=== PATIENT | female | born 1995 | race Caucasian/White ===

== ENCOUNTER 2016-09-13 22:38 | Emergency (ER) | payer OTHER ==
[2016-09-13 23:13] VITALS: BP 114/70; PULSE 72; TEMP 98.7; BMI 32.8
--- NOTE | 2016-09-13 23:43 | PDOC ---
History of Present Illness - General History Source: Patient Exam Limitations: No Limitations - History of Present Illness Initial Comments: 09/13/16 23:50 Patient is a 21 year old female with no significant past medical history who presents to the ED with left sided lumbar pain for 4 days. Patient states that she fell 2 years ago and had intermittent left sided lumbar pain that resolved on its own, but she reports 4 days of the same pain at the same location. Patient states that the pain is sustained with motrin and tylenol but comes back after the medication wears off. She denies nausea or vomiting. She denies dysuria, hematuria, urgency, frequency. No recent trauma or fall. <Elena Gan - Last Filed: 09/13/16 23:50> - General History Source: Patient <Kyle Singer - Last Filed: 09/14/16 03:24> - General Chief Complaint: Back Pain Stated Complaint: PAIN, ACUTE Time Seen by Provider: 09/13/16 23:42 Past History <Elena Gan - Last Filed: 09/13/16 23:50> - Past Medical History Thyroid Disease: No Other medical history: Denies - Immunization History Immunization Up to Date: Yes - Psycho/Social/Smoking Cessation Hx Anxiety: No Suicidal Ideation: No Smoking Status: No Smoking History: Never smoked Have you smoked in the past 12 months: No Number of Cigarettes Smoked Daily: 0 Information on smoking cessation initiated: No Hx Alcohol Use: No Drug/Substance Use Hx: No Substance Use Type: None <Kyle Singer - Last Filed: 09/14/16 03:24> - Past Medical History Allergies/Adverse Reactions: Allergies Allergy/AdvReac Type Severity Reaction Status Date / Time No Known Allergies Allergy Verified 09/13/16 23:13 Home Medications: Ambulatory Orders NK [No Known Home Medication] 09/14/16 Review of Systems - Review of Systems Able to Perform ROS?: Yes Comments:: 09/13/16 23:51 CONSTITUTIONAL: Absent: fever, chills, diaphoresis, generalized weakness, malaise, loss of appetite HEENT: Absent: rhinorrhea, nasal congestion, throat pain, throat swelling, difficulty swallowing, mouth swelling, ear pain, eye pain, visual Changes CARDIOVASCULAR: Absent: chest pain, syncope, palpitations, irregular heart rate, lightheadedness , peripheral edema RESPIRATORY: Absent: cough, shortness of breath, dyspnea with exertion, orthopnea, wheezing, stridor, hemoptysis GASTROINTESTINAL: Absent: abdominal pain, abdominal distension, nausea, vomiting, diarrhea, constipation, melena, hematochezia GENITOURINARY: Absent: dysuria, frequency, urgency, hesitancy, hematuria, flank pain, genital pain MUSCULOSKELETAL: Present: left lumbar pain Absent: myalgia, arthralgia, joint swelling SKIN: Absent: rash, itching, pallor HEMATOLOGIC/IMMUNOLOGIC: Absent: easy bleeding, easy bruising, lymphadenopathy, frequent infections ENDOCRINE: Absent: unexplained weight gain, unexplained weight loss, heat intolerance, cold intolerance NEUROLOGIC: Absent: headache, focal weakness or paresthesias, dizziness, unsteady gait, seizure, mental status changes, bladder or bowel incontinence PSYCHIATRIC: Absent: anxiety, depression, suicidal or homicidal ideation, hallucinations. <Elena Gan - Last Filed: 09/13/16 23:50> *Physical Exam - Vital Signs Last Vital Signs Temp Pulse Resp BP Pulse Ox 98.7 F 72 19 114/70 99 09/13/16 23:10 09/13/16 23:10 09/13/16 23:10 09/13/16 23:10 09/13/16 23:10 - Physical Exam Comments: 09/13/16 23:51 GENERAL: Well developed, well nourished. Awake and alert. In no acute distress. HEENT: Normocephalic, atraumatic. PERRLA, EOMI. No conjunctival pallor. Sclerae are non -icteric. Moist mucous membranes. Oropharynx is clear. NECK: Supple. Full ROM. No JVD. Carotid pulses 2+ and symmetric, without bruits. No thyromegaly. No lymphadenopathy. CARDIOVASCULAR: Regular rate and rhythm. No murmurs, rubs, or gallops. Distal pulses are 2+ and symmetric. PULMONARY: No evidence of respiratory distress. Lungs clear to auscultation bilaterally. No wheezing, rales or rhonchi. ABDOMINAL: Soft. Non-tender. Non-distended. No rebound or guarding. No organomegaly. Normoactive bowel sounds. MUSCULOSKELETAL (+)Mild lumbar paraspinal tenderness, No bony tenderness or deformities of the left hip with ROM of left him Normal range of motion at all joints. No bony deformities or tenderness. No CVA tenderness. EXTREMITIES: No cyanosis. No clubbing. No edema. No calf tenderness. SKIN: Warm and dry. Normal capillary refill. No rashes. No jaundice. NEUROLOGICAL: Alert, awake, appropriate. Cranial nerves 2-12 intact. No deficits to light touch and temperature in face, upper extremities and lower extremities. No motor deficits in the in face, upper extremities and lower extremities. Normoreflexic in the upper and lower extremities. Normal speech. Toes are downgoing bilaterally. PSYCHIATRIC: Cooperative. Good eye contact. Appropriate mood and affect. <Elena Gna - Last Filed: 09/13/16 23:50> - Vital Signs Last Vital Signs Temp Pulse Resp BP Pulse Ox 98.7 F 72 19 114/70 99 09/13/16 23:10 09/13/16 23:10 09/13/16 23:10 09/13/16 23:10 09/13/16 23:10 <Kyle Singer - Last Filed: 09/14/16 03:24> Medical Decision Making - Medical Decision Making 09/14/16 03:17 Dr. Singer: The scribe's documentation has been prepared under my direction and personally reviewed by me in its entirery. I confirm that the note above accurately reflects all work, treatment, procedures, and medical decision making performed by me. <Kyle Singer - Last Filed: 09/14/16 03:24> *DC/Admit/Observation/Transfer - Attestations Scribe Attestion: 09/13/16 23:52 Documentation prepared by FELICITA Ruiz, acting as back office medical assistant for Kyle Singer DO. <Elena Gan - Last Filed: 09/13/16 23:50> - Discharge Dispostion Admit: No <Kyle Singer - Last Filed: 09/14/16 03:24> Diagnosis at time of Disposition: Low back pain Qualifiers: Chronicity: chronic Back pain laterality: left Sciatica presence: without sciatica Qualified Code(s): M54.5 - Low back pain - Discharge Dispostion Disposition: HOME Condition at time of disposition: Stable - Referrals Referrals: Mehreen Bustos MD [Primary Care Provider] - - Patient Instructions Printed Discharge Instructions: DI for Low Back Pain
[2016-09-13] MEDS ORDERED: IBUPROFEN 400 MG TABLET (FP) PO ONE ×2 (23:47→23:55)
[2016-09-13] MEDS ORDERED: METHOCARBAMOL 500 MG TABLET PO ONE (23:47)
[2016-09-13] MEDS ORDERED: METHOCARBAMOL 500 MG TABLET ONE (23:55)
[2016-09-14 00:31] LABS: URINE APPEARANCE CLEAR; URINE BILIRUBIN NEGATIVE (NEGATIVE); URINE COLOR LTYELLOW; URINE GLUCOSE (UA) NEGATIVE (NEGATIVE); URINE KETONE NEGATIVE (NEGATIVE); URINE LEUK ESTERASE NEGATIVE (NEGATIVE); URINE NITRITE NEGATIVE (NEGATIVE); URINE PROTEIN NEGATIVE (NEGATIVE); URINE UROBILINOGEN NEGATIVE E.U./dl (0.2-1.0)
[2016-09-14 00:34] LABS: URINE BLOOD 3+ (NEGATIVE)
[2016-09-14 00:43] LABS: URINE MUCUS RARE; URINE RBC 79 /hpf (0-3); URINE WBC 1 /hpf (3-5)
== END 2016-09-14 03:48 | disposition home or self-care (01) ==
LOC: SUPCPDRO 22:38 → JER 22:38
DX: M54.5 Low back pain (principal)
CPT/HCPCS: 72131-TC; 81003; 81015; 84703; 99282-25

== ENCOUNTER 2017-04-19 22:26 | Emergency (ER) | payer OTHER ==
[2017-04-19 22:48] VITALS: BP 128/74; PULSE 72; TEMP 99.1; BMI 38.4
--- NOTE | 2017-04-19 23:24 | PDOC ---
History of Present Illness - General Stated Complaint: COUGHING Time Seen by Provider: 04/19/17 23:20 History Source: Patient Exam Limitations: No Limitations - History of Present Illness Initial Comments: 04/19/17 23:21 21-year-old female with no medical history presents to the emergency department complaining of a nonproductive cough 3 weeks without fever, chills, nausea/ vomiting, general malaise, headache, dizziness, lightheadedness, earaches, facial pains, rhinorrhea, nasal congestion, neck pain/stiffness, sore throat, back pains, chest pain, shortness of breath, abdominal pains, urinary symptoms. Patient states she's been around family members who is had pneumonia and bronchitis. Timing/Duration: reports: other ([id number]) Past History - Past Medical History Allergies/Adverse Reactions: Allergies Allergy/AdvReac Type Severity Reaction Status Date / Time No Known Allergies Allergy Verified 04/19/17 22:45 Home Medications: Ambulatory Orders Methylprednisolone [Medrol Dose Rohith] 4 mg PO ASDIR #21 tablet 04/19/17 Azithromycin [Zithromax -] 250 mg PO DAILY #4 tablet 04/20/17 COPD: No Thyroid Disease: No Other medical history: Pt denies - Immunization History Immunization Up to Date: Yes - Suicide/Smoking/Psychosocial Hx Smoking Status: No Smoking History: Never smoked Have you smoked in the past 12 months: No Number of Cigarettes Smoked Daily: 0 Information on smoking cessation initiated: No Hx Alcohol Use: No Drug/Substance Use Hx: No Substance Use Type: None Review of Systems - Review of Systems Able to Perform ROS?: Yes Comments:: 04/19/17 23:22 CONSTITUTIONAL: Absent: fever, chills, diaphoresis, generalized weakness, malaise, loss of appetite HEENT: Absent: rhinorrhea, nasal congestion, throat pain, throat swelling, difficulty swallowing, mouth swelling, ear pain, eye pain, visual Changes CARDIOVASCULAR: Absent: chest pain, loss of consciousness, palpitations, irregular heart rate, peripheral edema RESPIRATORY: +cough Absent: shortness of breath, dyspnea with exertion, orthopnea, wheezing, stridor, hemoptysis GASTROINTESTINAL: Absent: abdominal pain, abdominal distension, nausea, vomiting, diarrhea, constipation, melena, hematochezia GENITOURINARY: Absent: dysuria, frequency, urgency, hesitancy, hematuria, flank pain, genital pain MUSCULOSKELETAL: Absent: myalgia, arthralgia, joint swelling SKIN: Absent: rash, itching, pallor HEMATOLOGIC/IMMUNOLOGIC: Absent: easy bleeding, easy bruising, lymphadenopathy, frequent infections ENDOCRINE: Absent: unexplained weight gain, unexplained weight loss, heat intolerance, cold intolerance Is the patient limited Polish proficient: No *Physical Exam - Vital Signs Last Vital Signs Temp Pulse Resp BP Pulse Ox 99.1 F 72 18 128/74 100 04/19/17 22:45 04/19/17 22:45 04/19/17 22:45 04/19/17 22:45 04/19/17 22:45 - Physical Exam Comments: 04/19/17 23:22 GENERAL: Well developed, well nourished. Awake and alert. No acute distress. HEENT: Normocephalic, atraumatic. PERRLA, EOMI. No conjunctival pallor. Sclera are non- icteric. Moist mucous membranes. Oropharynx is clear. NECK: Supple. Full ROM. No JVD. Carotid pulses 2+ and symmetric, without bruits. No thyromegaly. No lymphadenopathy. CARDIOVASCULAR: Regular rate and rhythm. No murmurs, rubs, or gallops. Distal pulses are 2+ and symmetric. PULMONARY: No evidence of respiratory distress. Lungs clear to auscultation bilaterally. No wheezing, rales or rhonchi. ABDOMINAL: Soft. Non-tender. Non-distended. No rebound or guarding. No organomegaly. Normoactive bowel sounds. MUSCULOSKELETAL Normal range of motion at all joints. No bony deformities or tenderness. No CVA tenderness. EXTREMITIES: No cyanosis. No clubbing. No edema. No calf tenderness. SKIN: Warm and dry. Normal capillary refill. No rashes. No jaundice. NEUROLOGICAL: Alert, awake, appropriate. Cranial nerves 2-12 intact. No deficits to light touch and temperature in face, upper extremities and lower extremities. No motor deficits in the in face, upper extremities and lower extremities. Normoreflexic in the upper and lower extremities. Normal speech. Toes are down- going bilaterally. Gait is normal without ataxia. PSYCHIATRIC: Cooperative. Good eye contact. Appropriate mood and affect. *DC/Admit/Observation/Transfer Diagnosis at time of Disposition: Acute bronchitis Qualifiers: Bronchitis organism: unspecified organism Qualified Code(s): J20.9 - Acute bronchitis, unspecified - Discharge Dispostion Disposition: HOME Condition at time of disposition: Stable Admit: No - Prescriptions Prescriptions: Azithromycin [Zithromax -] 250 mg PO UTDICT #6 tab Methylprednisolone [Medrol Dose Rohith] 4 mg PO ASDIR #21 tablet - Referrals Referrals: Rufino Mensah MD [Staff Physician] - - Patient Instructions Printed Discharge Instructions: DI for Acute Bronchitis Additional Instructions: Rest increase fluids Over the counter supportive care Follow up with your physician or the one listed on your discharge in 48 hours Return to the Er for severe/persistent/worsening symptoms - Post Discharge Activity
--- NOTE | 2017-04-19 23:38 | PDOC ---
*Physical Exam - Vital Signs Last Vital Signs Temp Pulse Resp BP Pulse Ox 99.1 F 72 18 128/74 100 04/19/17 22:45 04/19/17 22:45 04/19/17 22:45 04/19/17 22:45 04/19/17 22:45 Medical Decision Making - Medical Decision Making 04/19/17 23:37 agree with care from SYDNI Siegel *DC/Admit/Observation/Transfer Diagnosis at time of Disposition: Acute bronchitis Qualifiers: Bronchitis organism: unspecified organism Qualified Code(s): J20.9 - Acute bronchitis, unspecified - Discharge Dispostion Condition at time of disposition: Stable - Prescriptions Prescriptions: Azithromycin [Zithromax -] 250 mg PO UTDICT #6 tab Methylprednisolone [Medrol Dose Rohith] 4 mg PO ASDIR #21 tablet - Referrals Referrals: Rufino Mensah MD [Staff Physician] - - Patient Instructions Printed Discharge Instructions: DI for Acute Bronchitis Additional Instructions: Rest increase fluids Over the counter supportive care Follow up with your physician or the one listed on your discharge in 48 hours Return to the Er for severe/persistent/worsening symptoms - Post Discharge Activity
[2017-04-20] MEDS ORDERED: AZITHROMYCIN 500 MG TABLET ONE (00:32)
[2017-04-20] MEDS ORDERED: AZITHROMYCIN 250 MG TABLET PO ONE (00:32)
== END 2017-04-20 00:25 | disposition home or self-care (01) ==
LOC: JER 22:26
DX: J20.9 Acute bronchitis, unspecified (principal)
CPT/HCPCS: 99281-25

== ENCOUNTER 2017-11-24 07:26 | Inpatient (IN) | payer OTHER ==
[2017-11-24 09:22] VITALS: BMI 37.5
[2017-11-24] MEDS ORDERED: DINOPROSTONE 10 MG VAGINAL SUPPOSITORY VG ONE (10:00)
[2017-11-24] MEDS ORDERED: TUBERCULIN PPD 5 TU/0.1ML SYRINGE (IN PATIENT USE ONLY) ID ONE (10:00)
[2017-11-24] MEDS ORDERED: DEXTROSE 5%-LACTATED RINGERS 1,000 ML IV SCH ×2 (10:00→21:30)
[2017-11-24 10:21] LABS: BASO % 0.3 % (0-2.0); EOS % 0.4 % (0-4.5); HEMATOCRIT 36.5 % (32.4-45.2); HEMOGLOBIN 12.5 GM/dL (10.7-15.3); LYMPH % 18.3 % (8-40); MCH 30.1 pg (25.7-33.7); MCHC 34.2 g/dl (32.0-36.0); MEAN CELL VOLUME 87.8 fl (80-96); MEAN PLT VOLUME 11.6 fl (7.5-11.1); MONO % 4.9 % (3.8-10.2); NEUT % 76.1 % (42.8-82.8); PLATELET COUNT 130 K/MM3 (134-434); RBC 4.15 M/mm3 (3.60-5.2); RDW 14.5 % (11.6-15.6); WHITE BLOOD COUNT 10.4 K/mm3 (4.0-10.0)
[2017-11-24 10:39] LABS: INR 0.97 (0.83-1.09)
[2017-11-24 10:42] LABS: ACTIVATED PTT 26.2 SECONDS (25.2-36.5)
[2017-11-24 11:13] LABS: ANION GAP 10 (8-16); BLOOD UREA NITROGEN 8 mg/dL (7-18); CALCIUM 8.6 mg/dL (8.5-10.1); CHLORIDE 108 mmol/L (98-107); CO2 24 mmol/L (21-32); CREATININE 0.5 mg/dL (0.55-1.02); GLUCOSE,RANDOM 65 mg/dL (74-106); POTASSIUM 4.2 mmol/L (3.5-5.1); SODIUM 142 mmol/L (136-145)
--- NOTE | 2017-11-24 21:21 | HP ---
Past Medical History - Primary Care Physician PCP:: Brad Waddell - Admission Chief Complaint: 22 yo P0 with at EGA 37w 0d admitted for labor induction due to IUGR. History of Present Illness: at 37 wk IUGR. Pt was followed and evaluated by MFM and noted to have downward growth curve with fetus in 6th %ile. Labor induction was recommended at this time. 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: Alzheimer's, CVA, Dementia, Migraine, Multiple Sclerosis, Peripheral Neuropathy, Parkinson's, Seizure, Syncope, TIA, Vertigo, Other Cardiovascular: No: AFIB, Aneurysm, Aortic Insufficiency, Aortic Stenosis, CAD, CHF, Deep Vein Thrombosis, HTN, Hyperlipdemia, NC, Mitral Insufficiency, Mitral Stenosis, Murmur, Pulmonary Hypertension, Other Pulmonary: No: Asthma, Bronchitis, Cancer, COPD, O2 Dependent, Pneumonia, Previously Intubated, Pulmonary Embolus, Pulmonary Fibrosis, Sleep Apnea, Other Gastrointestinal: No: Ascites, Cancer, Constipation, Crohn's Disease, Diverticulitis, Diverticulosis, Esophageal Varices, Gastritis, GERD, GI Bleed, Hemorrhoids, Hiatal Hernia, Inflamatory Bowel Disease, Irritable Bowel Disease, Pancreatitis, Peptic Ulcer Disease, Ulcerative Colitis, Other Hepatobiliary: No: Cirrhosis, Cholelithiasis, Cholecystitis, Choledocholithiasis , Hepatitis A, Hepatitis B, Hepatitis C, Other Renal/: No: Renal Failure, Renal Inusuff, BPH, Cancer, Hematuria, Hemodialysis , Neurogenic Bladder, Renal Calculi, UTI, Other Reproductive: No: Ectopic , Endometriosis, Fibroids, PID, Polycystic Ovary Syndrome, Postmenopausal, Other ...: 2 ...Para: 0 ...Term: 0 ...: 0 ...Spon : 0 ...Induced : 1 ...Multiple Gestation: 0 ...LMP: 04/19/17 ... Weeks Gestation by Dates: 31.2 ...EDC by Dates: 01/24/18 ...EDC by Sono: 12/15/17 Heme/Onc: No: Anemia, B12 Deficiency, Bleeding Disorder, Cancer, Current Chemotherapy, Current Radiation Therapy, Hemochromatosis, Hypercoaguable State, Myeloproliferative Synd, Sickle Cell Disease, Sickle Cell Trait, Thrombocytopenia, Other Infectious Disease: No: AIDS, C-Diff, Herpes Zoster, HIV, MRSA, STD's, Tuberculosis, VREF, Other Psych: No: Addictions, Anxiety, Bipolar, Depression, Panic, Psychosis, Schizophrenia, Other Musculoskeletal: No: Bursitis, Chronic low back pain, Hemiparesis, Hemiplegia, Osteoarthritis, Paraplegia, Other Rheumatology: No: Fibromyalgia, Gout, Lupus, Rheumatoid Arthritis, Sarcoidosis, Vasculitis, Other ENT: No: Allergic Rhinitis, Sinusitis, Other Endocrine: No: Alpine's Disease, [place]'s Disease, Diabetes Insipidus, Diabetes Mellitus, Hyperparathyroidism, Hyperthyroidism, Hypothyroidism, Osteopenia, SIADH, Other Dermatology: No: Basal Cell, Cellulitis, Eczema, Melanoma, Psoriasis, Squamous Cell, Other - Past Surgical History Past Surgical History: Yes: None Hx Myomectomy: No Hx Transabdominal Cerclage: No - Smoking History Smoking history: Never smoked Have you smoked in the past 12 months: No Aproximately how many cigarettes per day: 0 - Alcohol/Substance Use Hx Alcohol Use: No History of Substance Use: reports: None Home Medications - Allergies Allergies/Adverse Reactions: Allergies Allergy/AdvReac Type Severity Reaction Status Date / Time No Known Allergies Allergy Verified 11/24/17 09:35 - Home Medications Home Medications: Ambulatory Orders One Tablet 1 tab PO DAILY 11/24/17 Family Disease History - Family Disease History Family History: Denies Review of Systems - Review of Systems Constitutional: reports: No Symptoms Eyes: reports: No Symptoms HENT: reports: No Symptoms, Ocular Prosthesis Neck: reports: No Symptoms Cardiovascular: reports: No Symptoms Respiratory: reports: No Symptoms Gastrointestinal: reports: No Symptoms Genitourinary: reports: No Symptoms Breasts: reports: No Symptoms Reported Musculoskeletal: reports: No Symptoms Integumentary: reports: No Symptoms Neurological: reports: No Symptoms Endocrine: reports: No Symptoms Hematology/Lymphatic: reports: No Symptoms Psychiatric: reports: No Symptoms Pain Intensity: 2 Physical Exam - Maternity Vital Signs: Vital Signs Temperature 98.6 F 11/24/17 20:00 Pulse Rate 74 11/24/17 21:00 Respiratory Rate 20 11/24/17 21:00 Blood Pressure 120/62 11/24/17 21:00 O2 Sat by Pulse Oximetry (%) Constitutional: Yes: Well Nourished, No Distress, Calm, Obese Eyes: Yes: WNL, Conjunctiva Clear HENT: Yes: WNL, Atraumatic, Normocephalic Neck: Yes: WNL, Supple, Trachea Midline Cardiovascular: Yes: WNL, Regular Rate and Rhythm Lungs: Clear to auscultation, Normal air movement - Abdominal Exam/OB Fundal Height: 37 Number of Fetuses: Single Presentation: Vertex Contractions: Yes Regularity: Irregular Intensity: Mild Monitor Mode: External Heart Rate (range): 140 Heart Rate Location: Midline Category: I Accelerations: Non-Uniform Decelerations: None - Vaginal Exam/OB Vaginal Bleediing: No Speculum Exam: No Dilatation (cm): 2 Effacement (%): 50 Amniotic Membrane Status: Intact Presentation: Vertex/Position Station: -3 (Adequate gynecoid pelvimetry) - Physical Exam Musculoskeletal: Yes: WNL Extremities: Yes: WNL Edema: No Integumentary: Yes: WNL Deep Tendon Reflex Grade: Normal +2 ...Motor Strength: WNL Psychiatric: Yes: WNL, Alert, Oriented - Labs Lab Results: CBC, BMP 11/24/17 10:00 11/24/17 10:00 Hemorrhage Risk Assessment - Risk Factors Medium Risk Factors: Yes: None High Risk Factors: Yes: None Risk Score: 1 Risk Level: Medium Risk Imaging - Results Ultrasound: Report Reviewed Assessment/Plan 22 yo P0 with at EGA 37w 0d admitted for labor induction due to IUGR. Pt was admitted this morning and examination showed fetus with category I tracing. Adequate gynecoid pelvimetry on exam. Unfavorable cervix. We then had long discussion re: risks, benefits, and alternatives of labor induction. I explained the options of expectant management awaiting spontaneous labor, induction of labor, and elective section. The risks of uterine tachysystole, distress, uterine rupture, need for emergency C/S, hemorrhage, infection, scarring, etc. were discussed. We also discussed the risks of meconium aspiration, shoulder dystocia, and anesthesia options. The pt requested to proceed with induction. We discussed the alternative methods of induction with Cervidil, Cytotec, Folley ballon, and pitocin. The pt stated that she prefers Cervidil followed by pitocin, if needed. The Cervidil was inserted at 9am and removed at 9pm today. The fetus continues to have Category I tracing. The cervical dilation progressed from 1 to 2 cm. Plan to start pitocin later.
[2017-11-24] MEDS ORDERED: AMPICILLIN SODIUM 2 GM VIAL ONE (21:28)
[2017-11-24] MEDS ORDERED: AMPICILLIN - 2 GM in SODIUM CHLORIDE 100 ML IVPB ONE (21:31)
[2017-11-24] MEDS ORDERED: OXYTOCIN 30 UNITS in 0.9% NS 30 UNIT/500 ML INFUS.BAG IVPB SCH (21:45)
[2017-11-24] MEDS ORDERED: OXYTOCIN 30 UNITS in 0.9% NS 30 UNIT/500 ML INFUS.BAG IVPB ONE (21:50)
[2017-11-25] MEDS ORDERED: AMPICILLIN SODIUM 1 GM VIAL ONE ×3 (02:12→10:09)
[2017-11-25] MEDS: AMPICILLIN - 1 GM in SODIUM CHLORIDE 100 ML IVPB SCH ×3 (02:20→10:10)
[2017-11-25] MEDS ORDERED: ONDANSETRON 4 MG/2 ML VIAL ONE (05:23)
[2017-11-25] MEDS ORDERED: ONDANSETRON 4 MG/2 ML VIAL IVPB ONE (05:45)
--- NOTE | 2017-11-25 06:41 | PN ---
Ante-Partal Exam - Subjective Subjective: No complaits. Declined pain management Vital Signs: Vital Signs Temperature 98.4 F 11/25/17 04:42 Pulse Rate 70 11/25/17 04:42 Respiratory Rate 18 11/25/17 04:42 Blood Pressure 123/71 11/25/17 04:42 O2 Sat by Pulse Oximetry (%) Bleeding: No Headache: No Visual changes: No Right upper quadrant pain: No Pain (scale 1-10): 7 - Contractions Contractions: No Regularity: Regular (q4min) Intensity: Moderate Monitor Mode: External - Exam during Labor Heart Rate: 130 Variability: Moderate Heart Rate Location: Midline Category: II Monitor Accelerations: Present Monitor Decelerations: Variable Exam: Vaginal Dilatation (cm): 3 Effacement (%): 90 Amniotic Membrane Status: Leaking Nitrazine Test: Positive Amniotic Fluid: Clear Presentation: Vertex Station: 0 Remarks: IUPC inserted - Intrapartum Hemorrhage Risk Medium Risk Factors: None High Risk Factors: None Risk Score: 0 Risk Level: Low Risk - Assessment/Plan Assessment/Plan: 22yo P0 undergoing labor indx for IUGR. Fetus noted to have recurrent variable decelerations. The pitocin was stopped and pt position was changed. The pt wa given Oxygen by mask. However, I am not able to see contractions with the external monitor when the pt is in lateral position. IUPC was placed. Plan to monitor for contractions and re-start pitocin if tracing becomes category I. Will try amnioinfusion if needed.
[2017-11-25] MEDS ORDERED: ELECTROLYTE-148 SOLN 1,000 ML IV SCH (07:15)
[2017-11-25] MEDS ORDERED: FENTANYL/BUPIVACAINE/NS/PF - PCEA - 50 ML DISP.SYRIN EP ONE (07:18)
[2017-11-25] MEDS ORDERED: NALOXONE HCL 0.4 MG/ML VIAL IVPUSH PRN (07:29)
[2017-11-25] MEDS ORDERED: FENTANYL/BUPIVACAINE/NS/PF - PCEA - 50 ML DISP.SYRIN EP SCH (07:30)
[2017-11-25] MEDS ORDERED: BUPIVACAINE HCL/PF 0.25% (2.5MG/ML) 10 ML VIAL ONE (07:40)
[2017-11-25] MEDS ORDERED: ePHEDrine SULFATE 50 MG/1 ML AMPULE ONE (08:08)
[2017-11-25] MEDS ORDERED: LIDOCAINE HCL 1% PRESERVATIVE FREE - 30ML VIAL ONE (10:43)
[2017-11-25] MEDS ORDERED: OXYTOCIN 20 UNITS in 0.9% NS 20 UNIT/1,000 ML INFUS.BAG IV ONE (10:44)
[2017-11-25] MEDS: OXYTOCIN 20 UNITS in 0.9% NS 20 UNIT/1,000 ML INFUS.BAG IV SCH ×2 (11:40→17:14)
[2017-11-25 12:07] LABS: ARTERIAL BLD GAS O2 SATURATION 32.2 % (90-98.9); ARTERIAL BLOOD GAS BASE EXCESS -7.9 meq/l (-2-2); ARTERIAL BLOOD GAS PCO2 54.2 mmHg (35-45)
[2017-11-25 12:13] LABS: ARTERIAL BLOOD GAS pH 7.21 (7.35-7.45)
[2017-11-25 12:14] LABS: ARTERIAL BLOOD GAS PO2 20.3 mmHg (80-100); VENOUS PH 7.32 (7.32-7.42)
[2017-11-25 12:15] LABS: VENOUS PO2 31.1 mmHg (28-48)
--- NOTE | 2017-11-25 12:45 | PN ---
Delivery - Delivery Vaginal Delivery: No Problems, Spontaneous Type of Anesthesia: Local, Epidural Episiotomy/Laceration: Midline EBL (cc): 300 Delivery, Single - Stages of Labor Date 1st Stage Initiatied: 11/25/17 Time 1st Stage Initiated: 04:00 Date 2nd Stage Initiated: 11/25/17 Time 2nd Stage Initiated: 11:00 Date of Delivery: 11/25/17 Time of Delivery: 11:36 Date Placenta Delivered: 11/25/17 Time Placenta Delivered: 11:40 Placenta: Yes: Spontaneous, Normal Configuration - Condition of Kitchen Operator/Health Record Technician Present: No Infant Gender: Male Weight: 2.325 kg Position: Right, OA Total Hours ROM (Hrs/Mins): 6hrs 45min - 1 Minute Total Score: 9 5 Minutes Total Score: 9 - [place] Feeding Plan Initial Plan: Elected not to breastfeed exclusively throughout hospitalization
[2017-11-25] MEDS ORDERED: BENZOCAINE 20% 57 GM BOTTLE TP PRN (13:06)
[2017-11-25] MEDS ORDERED: BENZOCAINE 28 GM HEMORRHOIDAL OINTMENT TP PRN (13:06)
[2017-11-25] MEDS ORDERED: BISACODYL 10 MG SUPP.RECT RC PRN (13:06)
[2017-11-25] MEDS ORDERED: METHYLERGONOVINE MALEATE 0.2 MG/1 ML AMP IM PRN (13:06)
[2017-11-25] MEDS ORDERED: WITCH HAZEL 50% (TUCKS) 40 PAD/JAR PAD TP PRN (13:06)
[2017-11-25] MEDS ORDERED: OXYTOCIN 30 UNITS in 0.9% NS 30 UNIT/500 ML INFUS.BAG IVPB SCH (13:15)
[2017-11-25] MEDS: ACETAMINOPHEN 325 MG TABLET (FP) PO PRN (21:04)
[2017-11-25] MEDS: IBUPROFEN 600 MG TABLET (FP) PO PRN (21:04)
[2017-11-26 08:25] LABS: BASO % 0.3 % (0-2.0); HEMATOCRIT 28.2 % (32.4-45.2); HEMOGLOBIN 9.6 GM/dL (10.7-15.3); LYMPH % 21.4 % (8-40); MCH 30.2 pg (25.7-33.7); MEAN CELL VOLUME 88.7 fl (80-96); MEAN PLT VOLUME 11.5 fl (7.5-11.1); MONO % 4.2 % (3.8-10.2); NEUT % 73.1 % (42.8-82.8); PLATELET COUNT 115 K/MM3 (134-434); RBC 3.19 M/mm3 (3.60-5.2); RDW 14.7 % (11.6-15.6); WHITE BLOOD COUNT 12.7 K/mm3 (4.0-10.0)
[2017-11-26] MEDS: PRENATAL VITAMINS W/ FOLIC ACID TABLET (FP) PO SCH (09:28)
[2017-11-26] MEDS: IBUPROFEN 600 MG TABLET (FP) PO PRN ×3 (09:28→20:54)
--- NOTE | 2017-11-26 09:40 | PN ---
Post Progress Note - Subjective Subjective: No complaints Post Day: 1 Type of Delivery: Vital Signs: Vital Signs Temperature 98.1 F 11/26/17 08:36 Pulse Rate 76 11/26/17 08:36 Respiratory Rate 18 11/26/17 08:36 Blood Pressure 107/57 11/26/17 08:36 O2 Sat by Pulse Oximetry (%) 100 11/25/17 11:30 Breast Exam: Yes: Soft Uterus: Yes: Fundus Firm, Fundus below umbilicus, Non-tender Abdomen/GI: Yes: Abdomen soft, Passing flatus, Tolerating PO Lochia: Yes: Rubra Lochia, amount: Small Extremities: Yes: Calves non-tender Perineum: Yes: Intact Activity: Ambulating - Labs Labs: CBC WBC 12.7 K/mm3 (4.0-10.0) H 11/26/17 08:09 RBC 3.19 M/mm3 (3.60-5.2) L 11/26/17 08:09 Hgb 9.6 GM/dL (10.7-15.3) L 11/26/17 08:09 Hct 28.2 % (32.4-45.2) L D 11/26/17 08:09 MCV 88.7 fl (80-96) 11/26/17 08:09 MCH 30.2 pg (25.7-33.7) 11/26/17 08:09 MCHC 34.0 g/dl (32.0-36.0) 11/26/17 08:09 RDW 14.7 % (11.6-15.6) 11/26/17 08:09 Plt Count 115 K/MM3 (134-434) L 11/26/17 08:09 MPV 11.5 fl (7.5-11.1) H 11/26/17 08:09 Absolute Neuts (auto) 9.3 # 11/26/17 08:09 Neutrophils % 73.1 % (42.8-82.8) 11/26/17 08:09 Lymphocytes % 21.4 % (8-40) 11/26/17 08:09 Monocytes % 4.2 % (3.8-10.2) 11/26/17 08:09 Eosinophils % 1.0 % (0-4.5) D 11/26/17 08:09 Basophils % 0.3 % (0-2.0) 11/26/17 08:09 Nucleated RBC % 0 % (0-0) 11/26/17 08:09 Assessment/Plan 22 yo P1 s/p , doing well stable, afebrile. Asymptomatic for anemia care instructions reviewed. Continue routine care. Ambulation encouraged Discharge instruction reviewed
--- NOTE | 2017-11-26 09:44 | DS ---
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 Vital Signs: Vital Signs Temperature 98.1 F 11/26/17 08:36 Pulse Rate 76 11/26/17 08:36 Respiratory Rate 18 11/26/17 08:36 Blood Pressure 107/57 11/26/17 08:36 O2 Sat by Pulse Oximetry (%) 100 11/25/17 11:30 Constitutional: Yes: Well Nourished, No Distress, Calm Eyes: Yes: WNL, Conjunctiva Clear HENT: Yes: WNL, Atraumatic, Normocephalic Neck: Yes: WNL, Supple, Trachea Midline Cardiovascular: Yes: WNL, Regular Rate and Rhythm Respiratory: Yes: WNL, Regular, CTA Bilaterally Gastrointestinal: Yes: Normal Bowel Sounds, Soft, Abdomen, Obese ...Rectal Exam: Yes: Deferred Renal/: Yes: WNL ....Post : Yes: Uterus firm, Uterus non-tender, Slight lochia rubra Musculoskeletal: Yes: WNL Extremities: Yes: WNL Edema: No Integumentary: Yes: WNL Neurological: Yes: WNL, Alert, Oriented ...Motor Strength: WNL Psychiatric: Yes: WNL, Alert, Oriented Labs: CBC, BMP 11/26/17 08:09 11/24/17 10:00 Delivery - Delivery Vaginal Delivery: No Problems, Spontaneous Type of Anesthesia: Local, Epidural Episiotomy/Laceration: Midline EBL (cc): 300 Delivery, Single - Stages of Labor Date 1st Stage Initiatied: 11/25/17 Time 1st Stage Initiated: 04:00 Date 2nd Stage Initiated: 11/25/17 Time 2nd Stage Initiated: 11:00 Date of Delivery: 11/25/17 Time of Delivery: 11:36 Date Placenta Delivered: 11/25/17 Time Placenta Delivered: 11:40 Placenta: Yes: Spontaneous, Normal Configuration - Condition of Premium Note Interest Calculator Clerk/Label Operator Present: No Infant Gender: Male Weight: 2.325 kg Position: Right, OA Total Hours ROM (Hrs/Mins): 6hrs 45min - 1 Minute Total Score: 9 5 Minutes Total Score: 9 - [facility]ctor Feeding Plan Initial Plan: Elected not to breastfeed exclusively throughout hospitalization Discharge Summary Reason For Visit: CERVICAL INDUCTION at 37wk, IUGR, maternal obesity Procedures: Principal: Other Procedures: Indx of labor, insertion cervical dilator Hospital Course: Normal recovery Condition: Good - Instructions Diet, Activity, Other Instructions: Physical activity Resume your normal everyday activity as tolerated no heavy lifting or exercise until seen by your surgeon. You may walk unlimited pauline of and climb stairs. You may resume driving the car when you feel safe and comfortable behind the wheel. No sexual activity as instructed. Wound care If you have a bandage, leave it on, and keep dry for 48-72 hours. After that time discard the outer bandage. If they are tapes on the skin under the out of bandage leave them in place. They will peel off in the next 7 to 10 days. Do Not Peel them off. You may shower the day after surgery. If there are tapes present on the skin, you may shower over them. Diet There are no dietary restrictions. Eat healthy, high-fiber foods. Drink 6 to 8 glasses of liquid each day. This will assist in keeping your bowels are regular. Pain management You may take Tylenol or acetaminophen or Ibuprofen (for example, Motrin, Advil etc.) from my pain prescription medication is ordered should be taken as prescribed for moderate to severe pain. Call MD for any of the following: Severe pain not relieved by medication Fever of 101 or higher Excessive bleeding or drainage on dressing Inability to urinate Referrals: Yola Briones MD [Staff Physician] - Disposition: HOME - Home Medications Comprehensive Discharge Medication List: Ambulatory Orders Vitamins (Sjr) - 1 tab PO DAILY 11/24/17
[2017-11-26] MEDS: ACETAMINOPHEN 325 MG TABLET (FP) PO PRN (20:54)
[2017-11-26] MEDS ORDERED: SENNOSIDES/DOCUSATE COMBO (SENNA PLUS) TABLET (UD) PO PRN (22:00)
[2017-11-26 23:55] VITALS: TEMP 98.6
[2017-11-27] MEDS: ACETAMINOPHEN 325 MG TABLET (FP) PO PRN (08:23)
[2017-11-27] MEDS: IBUPROFEN 600 MG TABLET (FP) PO PRN (08:23)
[2017-11-27 08:49] VITALS: BP 98/64; PULSE 75
[2017-11-27] MEDS: PRENATAL VITAMINS W/ FOLIC ACID TABLET (FP) PO SCH (09:49)
== END 2017-11-27 14:20 | disposition home or self-care (01) | DRG 560 ==
LOC: JLDR 07:26 → J3W 11-25 13:11
PROVIDERS: ADMIT Obstetrics & Gynecology; ATTEND Obstetrics & Gynecology
PROC: 10E0XZZ Delivery of Products of Conception, External Approach (ICD-10-PCS; principal; 2017-11-25)
DX: O36.5930 Maternal care for other known or suspected poor fetal growth, third trimester, not applicable or unspecified (principal); E66.9 Obesity, unspecified; Z68.37 Body mass index [BMI] 37.0-37.9, adult; O99.214 Obesity complicating childbirth; O99.02 Anemia complicating childbirth; D64.9 Anemia, unspecified; Z3A.37 37 weeks gestation of pregnancy; Z37.0 Single live birth
CPT/HCPCS: 36415; 36600; 59409; 80048; 82803; 85025; 85610; 85730; 86593; 86850; 86900; 86901